=== PATIENT | female | born 1985 | race Caucasian/White ===

== ENCOUNTER 2018-04-15 15:01 | Outpatient (CLI) | payer OTHER | END 2018-04-15 15:06 | disposition home or self-care (01) | LOC: RAD 15:01 | DX: R07.1 Chest pain on breathing (principal) ==

== ENCOUNTER 2022-10-22 11:07 | Emergency (ER) | payer OTHER ==
[~2022-10-22] VITALS: Ht 157.5 cm; Wt 51.7 kg
[2022-10-22] MEDS ORDERED: LEXAPRO20 MG PO (11:45)
[2022-10-22] MEDS ORDERED: KEPPRA500 MG (11:45)
[2022-10-22] MEDS ORDERED: RESTORIL30 MG PO (11:46)
== END 2022-10-22 22:07 | disposition home or self-care (01) ==
LOC: ER 11:07
DX: R11.2 Nausea with vomiting, unspecified (principal); E87.6 Hypokalemia; E86.0 Dehydration; R10.9 Unspecified abdominal pain; Z88.6 Allergy status to analgesic agent; Z88.1 Allergy status to other antibiotic agents